=== PATIENT | male | born 1980 | race Caucasian/White ===

== ENCOUNTER 2017-06-15 15:00 | Emergency (ER) | payer MEDICAID ==
[~2017-06-15] VITALS: Ht 170.2 cm; Wt 81.8 kg
[2017-06-15] MEDS ORDERED: LOSA50TA37 PO (15:57)
[2017-06-15] MEDS ORDERED: IBUPROFEN 800 MG TABLET PO ONE (19:45)
[2017-06-15 20:23] LABS: INFLUENZA TYPE B NEGATIVE FOR TYPE B (NEGATIVE)
[2017-06-15 20:35] VITALS: BP 136/78
== END 2017-06-15 20:46 | disposition home or self-care (01) ==
LOC: EMS 15:05
DX: J06.9 Acute upper respiratory infection, unspecified (principal); J02.9 Acute pharyngitis, unspecified; M79.1 Myalgia; I10 Essential (primary) hypertension
CPT/HCPCS: 87430; 87804; 99284